=== PATIENT | female | born 1985 | race Caucasian/White ===

== ENCOUNTER 2017-06-14 15:03 | Emergency (ER) | payer BC ==
[~2017-06-14] VITALS: Ht 165.1 cm; Wt 65.0 kg
[~2017-06-14 15:03] MED LIST: CHROMAGEN,1 CAPSULE PO; CIPRO500 MG PO; DOCUSATE SODIU100 MG PO; ENDOCET 5-3251 EACH PO; IBUPROFEN800 MG PO; NAPROSYN500 MG PO; PRENATAL TABLE1 EAC3 PO; TRI-SPRINTEC1 EACH PO
[2017-06-14 15:51] LABS: HEMATOCRIT 42.5 % (36.0-46.0); HEMOGLOBIN 14.4 G/DL (11.9-15.5); MCH 32.9 PG (29.0-34.0); MCHC 33.9 G/DL (30.0-36.0); PLATELET COUNT 261 K/uL (156-360); RBC DIS.WIDTH-SD 46.1 % (39-53); RED BLOOD COUNT 4.38 M/uL (3.80-5.20); WHITE BLOOD COUNT 4.6 K/uL (4.1-10.2)
[2017-06-14 15:55] LABS: APPEARANCE SL.HAZY ((CLEAR)); BILIRUBIN NEGATIVE; BLOOD MODERATE; COLOR YELLOW ((YELLOW)); GLUCOSE (STRIP) NEGATIVE; KETONES NEGATIVE; LEUKOCYTES MODERATE; NITRITE NEGATIVE; PROTEIN (STRIP) 30; SPECIFIC GRAVITY 1.031 (1.000-1.030); UROBILINOGEN 0.2 MG/DL (0.2-1.0)
[2017-06-14 16:01] LABS: BACTERIA NONE SEEN /HPF; EPITHELIAL CELLS 2+ /HPF; MUCUS 1+ /LPF; RED BLOOD CELLS 30-40 /HPF (0-5); UCUL ADDED? NO; WHITE BLOOD CELLS 0-5 /HPF (0-5)
[2017-06-14 16:01] LABS: ALBUMIN 4.4 g/dL (3.2-4.8); CHLORIDE 104 mEq/L (99-109); POTASSIUM 3.6 mEq/L (3.7-5.4); SODIUM 139 mEq/L (136-147)
[2017-06-14 16:04] LABS: GLUCOSE 96 mg/dL (70-99); TOTAL PROTEIN 7.8 g/dL (6.4-8.3)
[2017-06-14 16:06] LABS: TOTAL BILIRUBIN 1.2 mg/dL (0.0-1.0)
[2017-06-14 16:07] LABS: ALKALINE PHOSPHATASE 64 IU/L (3-129); CREATININE 0.8 mg/dL (0.6-1.3); GFR ESTIMATE (CALCULATED) > 59 mL/min/
[2017-06-14 16:08] LABS: UREA NITROGEN (BUN) 12 mg/dL (9-23)
[2017-06-14 16:09] LABS: AST (GOT) 14 IU/L (2-34)
[2017-06-14 16:10] LABS: ALT (GPT) 11 IU/L (3-49)
[2017-06-14 16:11] LABS: LIPASE 28 U/L (1.0-51.0)
[2017-06-14 16:16] LABS: QUANTITATIVE HCG < 4.0 MIU/ML
[2017-06-14] MEDS ORDERED: ZOFRAN ODT4 MG PO (19:33)
[2017-06-14] MEDS ORDERED: NAPROSYN500 MG PO (19:33)
[2017-06-14 19:54] VITALS: BP 122/72
[2017-06-15] MEDS ORDERED: PERCOCET 5/31 TABLET PO (12:31)
== END 2017-06-14 19:50 | disposition home or self-care (01) ==
LOC: EME 15:03
PROVIDERS: Physician Assistant Medical
DX: R10.31 Right lower quadrant pain (principal); R10.13 Epigastric pain; Z87.442 Personal history of urinary calculi; Z88.0 Allergy status to penicillin
CPT/HCPCS: 74177; 80053; 81003; 83690; 84702; 85027; 99281; 99284; J1885; J2765; J7030

== ENCOUNTER 2017-06-15 07:25 | Day surgery (SDC) | payer BC ==
[~2017-06-15] VITALS: Ht 165.1 cm; Wt 69.8 kg
[~2017-06-15 07:25] MED LIST changes: +ZOFRAN ODT4 MG PO
[2017-06-15 08:19] LABS: HEMATOCRIT 38.3 % (36.0-46.0); HEMOGLOBIN 12.7 G/DL (11.9-15.5); MCH 32.5 PG (29.0-34.0); MCHC 33.2 G/DL (30.0-36.0); PLATELET COUNT 219 K/uL (156-360); RBC DIS.WIDTH-CV 12.9 % (11.8-14.6); RBC DIS.WIDTH-SD 46.3 % (39-53); RED BLOOD COUNT 3.91 M/uL (3.80-5.20); WHITE BLOOD COUNT 4.7 K/uL (4.1-10.2)
[2017-06-15] MEDS ORDERED: PERCOCET 5/31 TABLET PO (12:31)
[2017-06-15 14:20] VITALS: BP 110/60
[2017-06-15 20:22] VITALS: BP 122/69
[2017-06-16 00:11] VITALS: BP 98/57
[2017-06-16 03:54] VITALS: BP 96/56
[2017-06-16 07:35] VITALS: BP 111/62
== END 2017-06-16 11:47 | disposition home or self-care (01) ==
LOC: EME 07:25 → SDC 11:06 → EME 11:06 → 2SOUTH 12:27 → 2EASTP 12:27 → 2SOUTH 12:27 → ENRESERV 12:28 → 2EAST 13:48 → 2EASTP 21:24
PROVIDERS: Emergency Medicine
PROC: 0DTJ4ZZ Resection of Appendix, Percutaneous Endoscopic Approach (ICD-10-PCS; principal; 2017-06-15)
DX: K35.80 Unspecified acute appendicitis (principal); K38.1 Appendicular concretions; Z87.442 Personal history of urinary calculi; Z88.0 Allergy status to penicillin; Z91.018 Allergy to other foods
CPT/HCPCS: 82948; 85027; 88304; 99281; 99285; G0378; J0131; J1100; J1170; J1650; J1885; J2250; J2405; J2710; J3010; J7030; J7120; J7643; S0020; S0074